=== PATIENT | male | born 1930 | race Caucasian/White ===

== ENCOUNTER → 2017-01-26 | Outpatient (CLI) | payer MEDICARE ==
[~2017-01-26] MED LIST: AMLO-147 PO; ASPI-664 PO; IPRA4AER IH; LOSA1TAB19 PO; SIMV20TA2 PO; TIOT18CA IH
--- NOTE | 2017-01-26 13:19 | RADRPT ---
PROCEDURE: XR Chest. CLINICAL INDICATION: Cough TECHNIQUE: PA and lateral chest x-ray. COMPARISON: 06/15/2013 FINDINGS: Right lung interstitial markings are diffusely prominent, especially at the apex and right lung base , increased since the prior exam. Lungs are hyperinflated. There is no evidence of left lung infiltr ate. There is no evidence of pneumothorax or pleural effusion. The cardiomediastinal silhouette is u nremarkable. Aortic atherosclerotic calcifications are present. Moderate degenerative changes are pr esent throughout the thoracic spine. IMPRESSION: 1. 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 Superimposed infectious process is not ruled out. 2. Hyperinflation. 3. Aortic atherosclerosis.. RPTAT: JJ .Taco Glez MD, Date Time Electronically viewed and signed by .Taco Glez MD, on 01/26/2017 13:18 .A/
== END | disposition home or self-care (01) ==
LOC: RAD 11:48
PROVIDERS: ATTEND Internal Medicine
DX: R05 Cough (principal)
CPT/HCPCS: 71020